=== PATIENT | male | born 1995 | race Caucasian/White ===

== ENCOUNTER 2023-03-04 01:24 | Emergency (ER) | payer OTHER ==
[~2023-03-04] VITALS: Ht 177.8 cm; Wt 93.6 kg
[2023-03-04 01:40] VITALS: BP 146/87; PULSE 130; RESP 16; TEMP 99.5
== END 2023-03-04 02:02 | disposition left against medical advice (07) ==
LOC: ER 01:24
DX: F41.9 Anxiety disorder, unspecified (principal); I49.9 Cardiac arrhythmia, unspecified; Z86.59 Personal history of other mental and behavioral disorders
CPT/HCPCS: 93005; 99281

== ENCOUNTER 2023-12-03 18:50 | Emergency (ER) | payer OTHER ==
[~2023-12-03] VITALS: Ht 177.8 cm; Wt 85.0 kg
[2023-12-03 18:52] VITALS: O2SAT 99
[2023-12-03 20:30] LABS: BASOPHILS % 1.2 % (0.0-2.0); HEMATOCRIT. 47.8 % (42.0-52.0); HEMOGLOBIN. 16.3 g/dL (14.0-18.0); LYMPHOCYTES % 15.4 % (20.0-50.0); MEAN CORPUSCULAR HEMOGLOBIN 30.6 pg (28.0-32.0); MEAN CORPUSCULAR HGB CONC 34.2 g/dL (31.0-37.0); MEAN CORPUSCULAR VOLUME 89.5 fL (80.0-94.0); MEAN PLATELET VOLUME 8.8 fl (7.4-10.4); MONOCYTES % 9.5 % (2.0-8.0); NEUTROPHILS % 72.9 % (40.0-76.0); PLATELET 230 x1000/uL (130-400); RED BLOOD CELL COUNT 5.34 mill/uL (4.7-6.1); RED CELL DISTRIBUTION WIDTH 13.5 % (11.6-14.6); WHITE BLOOD COUNT 10.7 x1000/uL (4.5-11.0)
[2023-12-03 20:34] LABS: CHLORIDE 103 mEq/L (98-107); POTASSIUM 3.5 mEq/L (3.5-5.1); SODIUM 139 mEq/L (136-145)
[2023-12-03 20:35] LABS: CALCIUM 9.5 mg/dL (8.7-10.4); CARBON DIOXIDE 29 mEq/L (21-32)
[2023-12-03 20:40] LABS: CREATININE 0.8 mg/dL (0.6-1.3); GLUCOSE 112 mg/dL (70-105); UREA NITROGEN BLOOD 13 mg/dL (9-23)
[2023-12-03 20:42] LABS: ACETAMINOPHEN < 2 ug/mL (10-30)
[2023-12-03 20:54] LABS: ETHANOL BLOOD < 10 mg/dL (<10)
[2023-12-03 22:53] LABS: *AMPHETAMINES SCREEN URINE NEGATIVE (NEGATIVE); *BARBITURATES SCREEN URINE NEGATIVE (NEGATIVE); *BENZODIAZEPINES SCREEN URINE NEGATIVE (NEGATIVE)
[2023-12-03 22:54] LABS: *COCAINE SCREEN URINE NEGATIVE (NEGATIVE); CANNABINOID URINE SCREEN NEGATIVE (NEGATIVE); ECSTASY MDMA SCREEN URINE NEGATIVE (NEGATIVE); METHADONE URINE SCREEN NEGATIVE (NEGATIVE); OPIATES URINE SCREEN NEGATIVE (NEGATIVE); PHENCYCLIDINE URINE SCREEN NEGATIVE (NEGATIVE)
[2023-12-04 09:00] VITALS: BP 129/80; PULSE 71; RESP 22; TEMP 98.1
== END 2023-12-04 11:54 | disposition home or self-care (01) ==
LOC: ER 18:50
DX: R44.0 Auditory hallucinations (principal)
CPT/HCPCS: 36415; 80048; 80305; 80307; 80320; 80329; 85025; 99283; G0480